=== PATIENT | male | born 1965 | race Two or more races ===

== ENCOUNTER 2018-12-16 07:31 | Outpatient (CLI) | payer OTHER | END 2018-12-16 07:34 | disposition home or self-care (01) | LOC: TOM 07:31 | DX: K56.600 Partial intestinal obstruction, unspecified as to cause (principal) ==

== ENCOUNTER 2019-08-07 12:25 | Outpatient (CLI) | payer OTHER | END 2019-08-07 12:42 | disposition home or self-care (01) | LOC: LAB 12:25 | DX: J11.1 Influenza due to unidentified influenza virus with other respiratory manifestations (principal); D64.0 Hereditary sideroblastic anemia; J44.0 Chronic obstructive pulmonary disease with (acute) lower respiratory infection ==

== ENCOUNTER 2024-05-20 10:56 | Outpatient (CLI) | payer OTHER | END 2024-05-20 11:03 | disposition home or self-care (01) | LOC: RAD 10:56 | PROVIDERS: ATTEND Internal Medicine Cardiovascular Disease | DX: R10.9 Unspecified abdominal pain (principal) ==